=== PATIENT | female | born 1965 | race African-American/Black ===

== ENCOUNTER 2024-01-08 10:14 | Outpatient (CLI) | payer OTHER | END 2024-01-08 10:15 | disposition home or self-care (01) | LOC: BICRAD 10:14 | PROVIDERS: ATTEND Internal Medicine | DX: Z02.71 Encounter for disability determination (principal); M17.11 Unilateral primary osteoarthritis, right knee; M21.161 Varus deformity, not elsewhere classified, right knee ==